=== PATIENT | male | born 1950 | race Caucasian/White ===

== ENCOUNTER 2022-07-23 08:23 | Observation (INO) ==
--- NOTE | 2022-06-06 15:47 | PAT Medication Instructions ---
Medication Instructions Date of Service June 06, 2022 Home Medications ascorbic acid (vitamin C) 1,000 mg tablet (Vitamin C) 1 g PO QAM aspirin 81 mg capsule 81 mg PO QAM atorvastatin 40 mg tablet 40 mg PO PM calcium 600 mg capsule 600 mg PO QAM coQ10 (ubiquinol) 100 mg capsule 100 mg PO QAM cyanocobalamin (vitamin B-12) 1,000 mcg tablet (Vitamin B-12) 1,000 mcg PO QAM fexofenadine 180 mg tablet 180 mg PO QAM fluticasone 100 mcg-salmeterol 50 mcg/dose blistr powdr for inhalation (Advair Diskus) 1 inh inhalation QAM glucosamine-chondroitin 250 mg-200 mg tablet (Osteo Bi-Flex) 1 tab PO QAM levothyroxine 150 mcg tablet 150 mcg PO 6XWK lisinopril 5 mg tablet 5 mg PO QAM metoprolol succinate 25 mg tablet,extended release 24 hr 25 mg PO QAM omeprazole 20 mg tablet,delayed release 20 mg PO QAM ticagrelor 90 mg tablet (Brilinta) 90 mg PO BID Continue as directed levothyroxine 150 mcg tablet 150 mcg PO 6XWK ASK your prescriber and surgeon ticagrelor 90 mg tablet (Brilinta) 90 mg PO BID (in order for spinal or epidural anesthesia, Brilinta needs to be stopped 7 days before surgery. Please check if okay with doctor that prescribes this to you) STOP taking 2 weeks before surgery coQ10 (ubiquinol) 100 mg capsule 100 mg PO QAM glucosamine-chondroitin 250 mg-200 mg tablet (Osteo Bi-Flex) 1 tab PO QAM DO NOT take the morning of surgery ascorbic acid (vitamin C) 1,000 mg tablet (Vitamin C) 1 g PO QAM calcium 600 mg capsule 600 mg PO QAM cyanocobalamin (vitamin B-12) 1,000 mcg tablet (Vitamin B-12) 1,000 mcg PO QAM fexofenadine 180 mg tablet 180 mg PO QAM lisinopril 5 mg tablet 5 mg PO QAM Take morning of surgery With a small sip of water, OTHERWISE NOTHING TO EAT OR DRINK AFTER MIDNIGHT: aspirin 81 mg capsule 81 mg PO QAM (unless surgeon directed otherwise) fluticasone 100 mcg-salmeterol 50 mcg/dose blistr powdr for inhalation (Advair Diskus) 1 inh inhalation QAM metoprolol succinate 25 mg tablet,extended release 24 hr 25 mg PO QAM omeprazole 20 mg tablet,delayed release 20 mg PO QAM Take evening before surgery atorvastatin 40 mg tablet 40 mg PO PM Other Notes If you have any questions please call us at [phone] or [phone] or [phone] or [phone]
--- NOTE | 2022-06-11 10:16 | Anesthesiology Consultation ---
Date of Service June 11, 2022 Assessment & Plan (1) Encounter for pre-operative examination: Chart Review Chart Review: Acceptable Risk for Surgery (pending PCP clearance (06/24/22), cardio clearance (06/25/22), and most recent cardio testing ) and Patient seen in Pre Admission Testing -Awaiting PCP clearance 06/24/22 - Awaiting cardio clearance 06/25/22- please send EKG to cardio office for review at preop appt and also fax for most recent ECHO, stress test and cath -Due to cardio history- patient is NOT a Same Day Joint candidate Per PAT appt on 06/11/22, patient traveling to [place]- coming back around 06/20/22. Pt is vaccinated for Covid. Will leave to surgeon's discretion if preop Covid testing needed. Educated on importance of using Covid precautions one week prior to surgery Teaching & Discussion Pre-Anesthesia Teaching/Discussion Notes: Instructed NPO after midnight before surgery,except medications with 15 cc of water. Medication instructions provided according to the PAT guidelines. History Surgery Operation Date: 07/23/22 07:15 Proposed Procedures p Right Total Knee Arthroplasty - Romeo Dick DO Height/Weight Height: 6 ft Weight: 81.9 kg Allergies Allergy/AdvReac Type Severity Reaction Status Date / Time No Known Allergies Allergy Verified 06/06/22 12:12 Medications Home Medications Medication Instructions Recorded Confirmed Last Taken ascorbic acid (vitamin C) 1,000 mg 1 g PO QAM 06/06/22 06/06/22 Unknown tablet (Vitamin C) aspirin 81 mg capsule 81 mg PO QAM 06/06/22 06/06/22 Unknown atorvastatin 40 mg tablet 40 mg PO PM 06/06/22 06/06/22 Unknown calcium 600 mg capsule 600 mg PO QAM 06/06/22 06/06/22 Unknown coQ10 (ubiquinol) 100 mg capsule 100 mg PO QAM 06/06/22 06/06/22 Unknown cyanocobalamin (vitamin B-12) 1,000 mcg PO QAM 06/06/22 06/06/22 Unknown 1,000 mcg tablet (Vitamin B-12) fexofenadine 180 mg tablet 180 mg PO QAM 06/06/22 06/06/22 Unknown fluticasone 100 mcg-salmeterol 50 1 inh inhalation QA 06/06/22 06/06/22 Unknown mcg/dose blistr powdr for inhalation (Advair Diskus) glucosamine-chondroitin 250 mg-200 1 tab PO QAM 06/06/22 06/06/22 Unknown mg tablet (Osteo Bi-Flex) levothyroxine 150 mcg tablet 150 mcg PO 6XWK 06/06/22 06/06/22 Unknown lisinopril 5 mg tablet 5 mg PO QAM 06/06/22 06/06/22 Unknown metoprolol succinate 25 mg 25 mg PO QAM 06/06/22 06/06/22 Unknown tablet,extended release 24 hr omeprazole 20 mg tablet,delayed 20 mg PO QAM 06/06/22 06/06/22 Unknown release ticagrelor 90 mg tablet (Brilinta) 90 mg PO BID 06/06/22 06/06/22 Unknown Past Medical History Medical History (Updated 06/11/22 @ 14:57 by Nimco Marina PA-C) CAD (coronary artery disease) Follows with [facility] in [place] S/p two stents 07/23/21 History of myocardial infarction 07/21/21 HLD (hyperlipidemia) HTN (hypertension) Hypothyroidism Osteoarthritis Prostate cancer 2018-- under observation Exercise / Class Metabolic Activity II 4-5 Yardwork/Stairs/Walk up hill (one flight of stairs - no chest pain or SOB ) Past Family History Family History Other No family history of adverse response to anesthesia Past Surgical History Surgical History H/O heart artery stent x 2 (07/23/2021) History of cardiac catheterization 07/23/21 - [facility] - [place] - 2 stents History of colonoscopy History of esophagogastroduodenoscopy (EGD) History of hydrocelectomy History of left inguinal hernia repair History of prostate biopsy History of repair of rotator cuff BL Past Anesthesia History No Hx of Anesthesia Complications and No Family Hx of Anesthesia Complications History of PONV No Hx of PONV and No Hx of Motion Sickness Social History Smoking Status: Never smoker Do You Dip or Chew Tobacco: No Hx Alcohol Use: Yes Alcohol type: beer and hard liquor alcohol intake frequency: a few times a week Hx Substance Use: No substance use type: does not use Review of Systems Patient denies chest pain, shortness of breath, dyspnea on exertion, reflux, cou gh, wheezing, palpitations. No hx of seizures, stroke, apnea/snoring. No hx of blood clots or blood transfusions Physical Exam Vital Signs VITALS BP 143/68 P 64 TEMP 98.3 SP02 97% RESP 16 Constitutional no acute distress ENMT Mouth: no TMJ clicking Thyromental Distance: > or= 3.5 Finger Breadths (4.0) Mallampati Class: II Left sided bridge (permanent) Missing molars Neck + limited neck extension Respiratory normal respiratory effort; no respiratory distress Auscultation: lungs clear to auscultation bilaterally; no wheezes Cardiovascular Rate/Rhythm: regular rate and regular rhythm Heart Sounds: no murmur Vessels: no carotid bruit Musculoskeletal Spine: no pain with cervical ROM Extremities: extremities normal to inspection Psychiatric Orientation: alert Lab Results Anesthesia Preop Results Results Anesthesia Widget: WBC 6.12 K/ul (4.8-10.8) 06/11/22 Hgb 13.7 g/dl (14.0-18.0) L 06/11/22 Hct 40.0 % (40.1-51.0) L 06/11/22 Plt 235 K/uL (130-400) 06/11/22 Na 141 mmol/L (136-145) 06/11/22 K 3.8 mmol/L (3.5-5.1) 06/11/22 Cl 106 mmol/L (98-107) 06/11/22 CO2 29 mmol/L (21-32) 06/11/22 BUN 18 mg/dl (6-23) 06/11/22 Creat 0.95 mg/dl (0.6-1.4) 06/11/22 Glucose Level 114 mg/dl (70-99(Fasting)) H 06/11/22 PT 10.9 Seconds (9.0-12.0) 06/11/22 PTT 26.7 Seconds (21.0-31.0) 06/11/22 INR 1.0 (0.9-1.1) 06/11/22 HA1c 5.8 % (4.5-5.6) H 06/11/22 Urine Color Yellow 06/11/22 Urine Appearance Clear (Clear) 06/11/22 Urine pH 5.5 (4.5-7.5) 06/11/22 Urine Specific [place] 1.015 (1.000-1.030) 06/11/22 Urine Protein Negative (Negative) 06/11/22 Urine Glucose (UA) Negative (Negative) 06/11/22 Urine Ketones Negative (Negative) 06/11/22 Urine Blood Negative (Negative) 06/11/22 Urine Nitrite Negative (Negative) 06/11/22 Urine Bilirubin Negative (Negative) 06/11/22 Urine Urobilinogen Negative (Negative) 06/11/22 Urine Leukocyte Esterase Trace (Negative) H 06/11/22 Urine WBC (Auto) 1-5 /hpf (0-5) 06/11/22 Urine RBC (Auto) 0-4 /hpf (0-4) 06/11/22 Urine Hyaline Casts (Auto) 0 /lpf (0-5) 06/11/22 Urine Epithelial Cells (Auto) 0-5 /lpf (0-5) 06/11/22 Urine Bacteria (Auto) Negative (Negative) 06/11/22 Blood Type A Positive 06/11/22 Antibody Screen NEGATIVE 06/11/22 Testing Electrocardiogram Date: 06/11/22 Findings: + NSR @ (68bpm ) Left axis deviation. Low voltage QRS Incomplete RBBB. 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
--- NOTE | 2022-07-08 13:08 | History & Physical Report ---
Date of Service July 08, 2022 date of surgery: 07/23/22 Procedure: Right Total Knee Arthroplasty Surgeon: Romeo Dick Assessment & Plan (1) Arthritis of right knee: Plan: Presents for preop evaluation prior to his right knee replacement. He has been having pain in this knee for many years now which gradually worsened and is now affecting his daily activities, has tried previous corticosteroid injection as well as viscosupplementation without relief. He is 1 year now status post stent and he can discontinue his Brilinta, but will continue with his aspirin. Like to be discharged home with home health physical therapy after overnight stay. Will need cardiac clearance from [facility] cardiology otherwise has no other questions or concerns The risks and benefits have been discussed including, but not limited to, risk of infection, nerve injury, stiffness, loss of motion, failure to improve, etc. Reasonable outcomes and options of treatment were discussed. An explanation of appropriate alternatives to the procedure that may be advantageous were discussed and their risks and benefits, as well as the risks and benefits of not proceeding with treatment. I offered to answer any additional inquiries concerning the treatment involved. All the patient's questions were answered. The patient is agreeable, understanding of the treatment plan and alternatives, and wishes to proceed with the treatment plan. History of Present Illness Chief Complaint: Right knee pain Primary Care Provider: Baldo Roper Mr Vera is a pleasant 71-year-old male who presents for preoperative duration prior to his right total knee replacement. He has been having pain in his knee for many years now which is gradually worsened and is now affecting his activities including walking standing using stairs. He has complaints of pain, weakness and decreased range of motion. He has tried viscosupplementation as well as cortisone injections as well as Tylenol, unable to take anti- inflammatories secondarily to other medications. At this point time is failed conservative measures like to proceed with a right total knee replacement Allergies Allergy/AdvReac Type Severity Reaction Status Date / Time No Known Allergies Allergy Verified 06/06/22 12:12 Home Medications Medication Instructions Recorded Confirmed Type ascorbic acid (vitamin C) 1,000 mg 1 g PO QAM 06/06/22 06/06/22 History tablet (Vitamin C) aspirin 81 mg capsule 81 mg PO QAM 06/06/22 06/06/22 History atorvastatin 40 mg tablet 40 mg PO PM 06/06/22 06/06/22 History calcium 600 mg capsule 600 mg PO QAM 06/06/22 06/06/22 History coQ10 (ubiquinol) 100 mg capsule 100 mg PO QAM 06/06/22 06/06/22 History cyanocobalamin (vitamin B-12) 1,000 mcg PO QAM 06/06/22 06/06/22 History 1,000 mcg tablet (Vitamin B-12) fexofenadine 180 mg tablet 180 mg PO QA 06/06/22 06/06/22 History fluticasone 100 mcg-salmeterol 50 1 inh inhalation QA 06/06/22 06/06/22 History mcg/dose blistr powdr for inhalation (Advair Diskus) glucosamine-chondroitin 250 mg-200 1 tab PO QA 06/06/22 06/06/22 History mg tablet (Osteo Bi-Flex) levothyroxine 150 mcg tablet 150 mcg PO 6XWK 06/06/22 06/06/22 History lisinopril 5 mg tablet 5 mg PO QA 06/06/22 06/06/22 History metoprolol succinate 25 mg 25 mg PO QAM 06/06/22 06/06/22 History tablet,extended release 24 hr omeprazole 20 mg tablet,delayed 20 mg PO QAM 06/06/22 06/06/22 History release ticagrelor 90 mg tablet (Brilinta) 90 mg PO BID 06/06/22 06/06/22 History Past Med/Surg History Medical History CAD (coronary artery disease) Follows with [facility]iology in [place] S/p two stents 07/23/21 History of myocardial infarction 07/21/21 HLD (hyperlipidemia) HTN (hypertension) Hypothyroidism Osteoarthritis Prostate cancer 2018-- under observation Surgical History H/O heart artery stent x 2 (07/23/2021) History of cardiac catheterization 07/23/21 - [facility] - [place] - 2 stents History of colonoscopy History of esophagogastroduodenoscopy (EGD) History of hydrocelectomy History of left inguinal hernia repair History of prostate biopsy History of repair of rotator cuff BL Family History Other No family history of adverse response to anesthesia Social History Smoking Status: Never smoker Second Hand Exposure: No; Hx Alcohol Use: Yes Alcohol type: beer and hard liquor Hx Substance Use: No Preferred Language: Italian Communication Ability: Effective Payroll Benefits Administrator Required: No Beliefs That Will Affect Care: None Current Living Situation: Family Feels Safe at Home: Yes Assistive Devices: Glasses Review of Systems Review of Systems: All systems reviewed & are unremarkable except as noted in HPI & below Constitutional: no fever, no chills and no sweats Respiratory: no cough and no dyspnea Cardiovascular: no chest pain, no dyspnea and no orthopnea Gastrointestinal: no abdominal pain, no nausea and no vomiting Musculoskeletal: as per Subjective / HPI Physical Exam Physical Exam: HT: 6ft WT: 81.9kg Constitutional: WD/WN, vitals as above no acute distress Respiratory: normal respiratory effort, lungs clear to auscultation no respiratory distress, no labored breathing and does not use accessory muscles Cardiovascular: RRR, no murmur, no edema Gastrointestinal (Abdomen): normal bowel sounds, soft, nontender, no hepatosplenomegaly Musculoskeletal: Knee: + knee abnormal to inspection (Right Knee: ), + effusion (+1 effusion), + limited ROM of knee (ROM 0/3/110), + knee ROM with crepitation, + joint line tenderness (medial joint line) and + Babita's sign positive; no deformity, no skin erythema, no ecchymosis, no valgus laxity, no varus laxity, anterior drawer test negative, Bull's sign negative and pivot shift test negative Results & Data Results & Data ([facility]) Diagnostic Findings Right Knee X-ray: Right knee series showing advanced degenerative changes to the right knee, narrowing of the medial compartment and patello-femoral joint with patellar spurring noted, findings showing joint space narrowing of the medial compartment and patello-femoral joint, osteophyte formation and subchondral sclerosis noted. overall varus alignment. no acute bony pathology noted.
[~2022-07-23 08:23] MED LIST: ACETAMINOPHEN 500 MG TAB PO SCH; BUPIVACAINE 0.5 % 5 MG/1 ML PF 10ML VIAL ONE; CeleBREX 200 MG CAP PO SCH; FAMOTIDINE 20 MG TAB PO SCH; GABAPENTIN 300 MG CAP PO SCH; LR 500ML BOLUS, THEN 15ML/HR IV SCH; METOCLOPRAMIDE HCL 10 MG TABLET PO SCH; ROPIVACAINE 0.5% 5 MG/ML 30 ML VIAL ONE; ROPIVACAINE 0.5% HCL/PF 150 MG, BUPIVACAINE 0.75% MPF 20 ML, EPINEPHrine 30MG/30ML (OR ... INFIL SCH; ceFAZolin 2000MG 2,000 MG/15 ML SYR IV SCH; dexAMETHasone 4 MG TAB PO SCH
[2022-07-23] MEDS ORDERED: PROPOFOL IV EMULSION 10 MG/ML 20 ML VIAL IV ONE (08:51)
[2022-07-23] MEDS ORDERED: LIDOCAINE 2% MPF LOCAL 5 ML VIAL INFIL ONE (08:51)
[2022-07-23] MEDS ORDERED: ONDANSETRON INJ 2 MG/ML 2 ML VIAL ONE (08:51)
[2022-07-23] MEDS ORDERED: KETAMINE 50 MG/5 ML SYRINGE ONE (08:51)
[2022-07-23] MEDS ORDERED: MIDAZOLAM HCL 1 MG/ML 2ML VIAL ONE (08:51)
[2022-07-23] MEDS ORDERED: GLYCOPYRROLATE 0.2 MG/ML VIAL ONE (08:51)
[2022-07-23] MEDS ORDERED: TRANEXAMIC ACID / 0.7% NACL 1,000 MG/100 ML BAG IV ONE ×2 (09:59)
--- NOTE | 2022-07-23 10:04 | History & Physical Bridge Note ---
Date of Service July 23, 2022 History & Physical Bridge Note I have examined the patient, reviewed the History & Physical and in the interval since the performance of the History & Physical I have noted the following changes of clinical significance: no changes noted
[2022-07-23] MEDS ORDERED: ONDANSETRON INJ 2 MG/ML 2 ML VIAL IV PRN ×2 (10:07→14:15)
[2022-07-23] MEDS ORDERED: fentaNYL citrate 100 MCG/2 ML VIAL IV PRN (10:07)
[2022-07-23] MEDS ORDERED: ATROPINE SULFATE 0.1 MG/ML 10ML SYR IV PRN (10:07)
[2022-07-23] MEDS ORDERED: ePHEDrine sulfate 50 MG/ML AMP IV PRN (10:07)
[2022-07-23] MEDS ORDERED: ORTHO JOINT ANESTHETIC ONE (10:38)
[2022-07-23] MEDS ORDERED: ePHEDrine sulfate 50 MG/ML SYR ONE (11:49)
--- NOTE | 2022-07-23 12:23 | Operative Report ---
Post Operative Report Pre & Post Diagnosis Operation Date: 07/23/22 10:25 Pre-Op Diagnosis: Arthritis of Right Knee Post-Op Diagnosis: Arthritis of Right Knee I identified the patient and participated in the time-out.: Yes Procedure Operation Date: 07/23/22 10:25 Actual Procedures p Right Total Knee Arthroplasty(Right utilizing [employer] journey 2 no nblock total knee arthroplasty size femur 8 tibia 8 Poly 9 patella 38 round) - Romeo Dick DO Surgeon Romeo Dick DO Aerospace Medicine Physician LESLEE Dubose Estimated Blood Loss 5 Findings Consistent with Post-Op Diagnosis Patient presents with 10 degree flexion contracture varus alignment subchondral sclerosis marginal osteophytes eburnated [id number] with a moderate to large effusion Specimens Bone and cartilage Drains Medium bore Hemovac Anesthesia Type MAC Spinal Regional Complications none Disposition Accompanied Patient To Recovery: No Disposition: Recovery Room Indications Patient presents with severe end-stage tricompartmental DJD varus alignment subchondral sclerosis marginal osteophytes failed attempted corticosteroid injection viscosupplementation relative rest activity modification the above intraoperative findings were noted Description of Procedure After proper prepping and draping of the Right lower extremity anterior midline incision was made over the region of the extensor extensor mechanism after meticulous hemostasis was obtained and maintained in subcutaneous tissues a medial parapatellar incision was made The patella was subluxed lateralward the medial lateral gutter were cleaned from any hypertrophic synovitis and scar tissue of the distal femoral block was placed and the distal femoral osteotomy cut was made subsequently the chamfers anterior and posterior osteotomy cuts were made utilizing the 4-in-1 block the tibia was subsequently subluxed anteriorward medial and ateral meniscal remnants were excised in their entirety remnants of the anterior and posterior cruciate ligaments were excised in their entirety excellent exposure of the proximal tibia was obtained the tibial osteotomy guide was placed on the proximal tibial osteotomy cut was made once again the knee was irrigated with copious amounts of sterile saline solution the patella was subsequently everted lateralward thickened scar tissue around the patella was removed the patella was subsequently cut utilizing a freehand technique and was drilled prepared for final preparation and placement of patella socially flexion-extension gaps were checked and the equal and symmetric trials were placed to the appropriate femoral and tibial trials with poly-spacer being placed for equal flexion and extension gaps and full range of motion including extension to 0 and flexion to 140 the trial components after having been taken to recovery range of motion was subsequently removed meticulous hemostasis was obtained and maintained subsequently a knee block injection of joint cocktail including ropivacaine 0.5% 150 mg. Bupivacaine 0.5% epinephrine 1-200,030 mL's toradol 30 mg dexamethasone 4 mg ketamine 10 mg clonidine 100 micrograms normal saline solution 30 mg was infiltrated into the soft tissues of the posterior knee medial lateral gutters and periosteal synovium special attention was paid to protect neurovascular structures at all times subsequently trial components having been removed the knee was irrigated with sterile saline solution. debris was removed the proximal tibia was subsequently prepared and was made ready for the placement of the tibial component tibial component was also cemented and tamped into position the femoral component was subsequently placed and cemented in the position the patellar component was subsequently cemented in position because hemostasis once again obtained and maintained wound having been thoroughly irrigated with debridement and debridement lavage was performed as well as a medial parapatellar incision closed with #1 Vicryl in interrupted fashion subcutaneous was closed with #2 Vicryl skin was closed with skin clips. PA-C was necessary for prepping and drapping as well as wound closure of deep fascia Sub cutaneous tissue and skin and was necessary for the case. A sterile compressive dressing was placed patient was taken to recovery in stable condition of report dictated by Kapil I attest to the content of the Intraoperative Record and any orders documented therein. Any exceptions are noted below.Due to the complex nature of the procedure, the entire surgery was performed with the operational assistance of LESLEE Dubose. The assistant sales center manager, under direct supervision, was involved in the actual performance of all aspects of the surgical procedure including hemostasis, tissue retraction and incision, instrument management, patient positioning, and wound closure. I attest to the content of the Intraoperative Record and any orders documented therein. Any exceptions are noted below.
--- NOTE | 2022-07-23 13:59 | Anesthesiology Progress Note ---
Date of Service July 23, 2022 Anesthesia Post Procedure Vital Signs Vital Signs: Temp Pulse Pulse Resp BP Pulse Ox O2 Del Method 07/23/22 13:50 98.2 F 71 15 106/61 94 Room Air 07/23/22 13:40 72 12 108/64 95 Room Air 07/23/22 13:30 70 13 109/62 94 Room Air 07/23/22 13:20 74 17 106/68 93 Room Air 07/23/22 13:10 92 H 13 107/68 94 Room Air 07/23/22 13:02 99.1 F 86 15 103/63 98 Oxymask 07/23/22 09:07 98.2 F 65 20 137/87 96 Room Air O2 Flow Rate 07/23/22 13:50 07/23/22 13:40 07/23/22 13:30 07/23/22 13:20 07/23/22 13:10 07/23/22 13:02 5 07/23/22 09:07 Transfer of Care Handoff Completed per policy Notes Mental Status: alert / awake / arousable and participated in evaluation Patient Amnestic to Procedure: Yes Nausea / Vomiting: adequately controlled Pain: adequately controlled Airway Patency, RR, SpO2: stable & adequate BP & HR: stable & adequate Hydration State: stable & adequate Neuraxial Anesthesia: was administered and sensory block is resolving Anesthetic Complications: no major complications apparent and Pt Satisfied with anesthetic care
[2022-07-23] MEDS ORDERED: NALOXONE HCL 0.4 MG/1 ML VIAL/CARP IV PRN (14:15)
[2022-07-23] MEDS ORDERED: MAGNESIUM HYDROXIDE SUSP 30 ML UDC PO PRN (14:15)
[2022-07-23] MEDS ORDERED: bisacodyL 10 MG SUPP PR PRN (14:15)
[2022-07-23] MEDS ORDERED: diphenhydrAMINE Capsule 25 MG CAP PO PRN (14:15)
[2022-07-23] MEDS ORDERED: SODIUM CHLORIDE 0.9% 1000ML 1,000 ML IV SCH (14:15)
[2022-07-23] MEDS ORDERED: METOCLOPRAMIDE HCL INJ 5 MG/ML 2 ML VIAL IV PRN (14:15)
[2022-07-23] MEDS ORDERED: oxyCODONE HCL IR 5 MG TAB (IMMEDIATE RELEASE) PO PRN (14:15)
[2022-07-23] MEDS ORDERED: HYDROmorphone INJ 1 MG/ML SYRINGE IV PRN (14:15)
--- NOTE | 2022-07-23 14:44 | XRay Report ---
RIGHT KNEE 2 VIEWS History: Right total knee arthroplasty. Degenerative arthritis. Postop. FINDINGS: The patient is status post a right total knee arthroplasty. The hardware is intact. No frac ture or dislocation. Surgical drains are in place. IMPRESSION: Right total knee arthroplasty. No evidence for hardware complication. ACT 112: Negative or not required by law. Electronically signed by: Abraham Rendon M.D. 07/23/2022 2:42 PM
--- NOTE | 2022-07-23 14:48 | Hospitalist Consultation ---
Date of Consultation July 23, 2022 Assessment & Plan (1) Status post right knee replacement: -The patient is currently afebrile, hemodynamically stable, and stable on RA -Pain control, perioperative abx, DVT PPX, and IV fluids per the primary team -Agree with continuing IV fluids with orders to DC at 0600 tomorrow as the patient is euvolemic with soft BPs -Agree with am labs, we will review -Added daily famotidine while admitted for stress ulcer PPX (2) CAD (coronary artery disease): -S/P PCi to the LAD in July of 2021 -Continue aspirin as scheduled to restart tomorrow -Ok to stop Brilinta on discharge as recommended by Cardiology in their medical clearance on 06/25/22 as he is now 1 yr post PCI (3) HTN (hypertension): -Continue metoprolol -Agree with restarting lisinopril tomorrow if BP and renal functino are stable (4) HLD (hyperlipidemia): -Continue statin (5) Hypothyroidism: -Continue levothyroxine (6) GERD (gastroesophageal reflux disease): -Continue daily famotidine while admitted then 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 Dyer at the time of the consult Supervising Physician Co-Signing Physician Notes PA Supervision Note: I personally saw and examined the patient. I verified all meadows points and agree with LESLEE Ash with the following exceptions and/or additions: Subjective: 72-year-old male past medical history significant for hypertension, CAD, hypothyroidism, asthma admitted for postoperative care after right total knee arthroplasty today by Dr. Dick. Patient is doing well and even reports some range of motion in that right knee. Is feeling hungry, no other complaints including no chest pain or shortness of breath, no abdominal pain, nausea, diarrhea. Physical exam: Vitals reviewed Gen: Alert and oriented, NAD HEENT: anicteric sclerae, EOMI CV: RRR no murmurs Pulm: CTAB no wheezes or crackles Abd: +BS soft nontender Ext: no edema, 2+ DP pulses Skin: no rashes, warm/dry Neuro: No focal neurologic deficits Labs, Rads, and ECG reviewed: COVID-negative, otherwise no labs, imaging studies performed for preadmission testing. Agree with lab work in the morning. Assessment and Plan: Right knee arthritis: Status post right total knee arthroplasty 07/23/[address] Dick, doing well and will have physical and Occupational Therapy following continued recovery. DVT prophylaxis and pain management per primary team. CAD: Patient has a history of CAD status post drug-eluting stent in July 2021; patient is now 1 year post stent and can stop Brilinta per previous cardiology notes. Hypertension: History of, on lisinopril. BP normotensive at 112/67, will hold lisinopril until morning labs and monitor BP with likely resume lisinopril tomorrow Plan otherwise as stated above. History of Present Illness Reason for Consultation: Post-op medical management Requesting Physician: Romeo Dick DO Attending Physician: Dr. Dionne Dyer DO History of Present Illness Patel is a 72 year old male with a PMH significant for CAD S/P PCI of the LAD in July of 2021, hypothyroidism, GERD, asthma, hyperlipidemia, and HTN who presented to the [facility] on 07/23/22 for elective Right Total Knee Arthroplasty with Dr. Dick. Per the post-op report, there were no reported intra-operative complications, EBL was listed as 5 cc, and anesthesia was listed as "[facility]". Review of the patient's vitals since arrival to the hospital today show him to be afebrile, hemodynamically stable, and stable on RA. Review of the patient's cardiac medical clearance on 06/25/22 explains that the patient should continue his metoprolol, statin, and aspirin through the perioperative period. The patient has been on Brilinta since his cardiac catheterization in 2021. The cardiac clearance clearly explains that the patient could stop Brilinta 5-7 days prior to surgery and then stop it altogether since he is greater than 1 year from the procedure. At the time of the exam the patient was resting in bed in no acute distress with his sitting bedside. He states that he is feeling well after his pro cedure, he is currently without RLE pain and has no complaints at the time of the exam. He confirms that he took his omeprazole, advair, and metoprolol this am; he does not have ALVINO or use HS CPAP. He also confirmed the he stopped his Brilinta approximately one week ago as directed. Please refer to Dr. Dyer's attestation for any changes to the treatment plan Allergies Allergy/AdvReac Type Severity Reaction Status Date / Time No Known Allergies Allergy Verified 07/23/22 08:55 Home Medications Medication Instructions Recorded Confirmed Type ascorbic acid (vitamin C) 1,000 mg 1 g PO QAM 06/06/22 07/23/22 History tablet (Vitamin C) aspirin 81 mg capsule 81 mg PO QAM 06/06/22 07/23/22 History atorvastatin 40 mg tablet 40 mg PO PM 06/06/22 07/23/22 History calcium 600 mg capsule 600 mg PO QAM 06/06/22 07/23/22 History coQ10 (ubiquinol) 100 mg capsule 100 mg PO QAM 06/06/22 07/23/22 History cyanocobalamin (vitamin B-12) 1,000 mcg PO QAM 06/06/22 07/23/22 History 1,000 mcg tablet (Vitamin B-12) fexofenadine 180 mg tablet 180 mg PO QA 06/06/22 07/23/22 History fluticasone 100 mcg-salmeterol 50 1 inh inhalation QA 06/06/22 07/23/22 History mcg/dose blistr powdr for inhalation (Advair Diskus) glucosamine-chondroitin 250 mg-200 1 tab PO QAM 06/06/22 07/23/22 History mg tablet (Osteo Bi-Flex) levothyroxine 150 mcg tablet 150 mcg PO 6XWK 06/06/22 07/23/22 History lisinopril 5 mg tablet 5 mg PO QAM 06/06/22 07/23/22 History metoprolol succinate 25 mg 25 mg PO QAM 06/06/22 07/23/22 History tablet,extended release 24 hr omeprazole 20 mg tablet,delayed 20 mg PO QAM 06/06/22 07/23/22 History release ticagrelor 90 mg tablet (Brilinta) 90 mg PO BID 06/06/22 07/23/22 History Patient History Medical History CAD (coronary artery disease) Follows with [facility] in [place] S/p two stents 07/23/21 History of myocardial infarction 07/21/21 HLD (hyperlipidemia) HTN (hypertension) Hypothyroidism Osteoarthritis Prostate cancer 2018-- under observation Surgical History H/O heart artery stent x 2 (07/23/2021) History of cardiac catheterization 07/23/21 - [facility] [place] - 2 stents History of colonoscopy History of esophagogastroduodenoscopy (EGD) History of hydrocelectomy History of left inguinal hernia repair History of prostate biopsy History of repair of rotator cuff BL Family History Other No family history of adverse response to anesthesia Social History Smoking Status: Never smoker Second Hand Exposure: No; Do You Dip or Chew Tobacco: No; Hx Alcohol Use: Yes Alcohol type: beer and hard liquor Hx Substance Use: No Preferred Language: French Communication Ability: Effective Patient Account Specialist Required: No Beliefs That Will Affect Care: None Current Living Situation: Family Feels Safe at Home: Yes Safety Concerns: Feels Safe At This Time Assistive Devices: Glasses Review of Systems Review of Systems: Denies current fever, chills, headache, changes in vision, hearing, taste, and smell, chest pain, SOB, cough, abdominal pain, nausea, vomiting, diarrhea, hematemesis, melena, dysuria, hematuria, and recent falls. All systems have been reviewed and are otherwise negative. Physical Exam Physical Exam: Physical Exam: General: In no acute distress, stated age, well-nourished, good hygiene HEENT: Normocephalic, atraumatic, no scleral icterus, pupils around round, symmetrical, and reactive to light, moist mucus membranes, trachea midline, no thyromegaly Chest/Pulm: No respiratory distress, symmetrical chest expansion, clear breath sounds throughout Cardiac: RRR, no murmurs noted Abdomen: Negative for ascites and bruising, normoactive bowel sounds, soft, non-tender to palpation throughout Musculoskeletal: Patient iwth RLE currently wrapped and with SCDs on the BL LE's. No signs of drainage from from the wraps and patient has intact sensation and motor function in the BL feet Extremities: Radial, dorsalis pedis, and posterior tibial pulses are intact and symmetrical, no edema noted in the BL LE's Skin: Warm, dry, no rashes , lesions, or scars noted Neuro: Alert and oriented to person, place, month, year, and president, no focal defects, no tremors noted Psych: No acute distress, calm and cooperative during the exam Results & Data Results & Data ([facility]) Vital Signs (Past 12 Hours) Vital Signs Temp Pulse Pulse Resp BP Pulse Ox O2 Del Method 07/23/22 14:15 36.9 C 73 16 105/59 L 94 Room Air 07/23/22 14:00 73 17 105/59 L 93 Room Air 07/23/22 13:50 36.8 C 71 15 106/61 94 Room Air 07/23/22 13:40 72 12 108/64 95 Room Air 07/23/22 13:30 70 13 109/62 94 Room Air 07/23/22 13:20 74 17 106/68 93 Room Air 07/23/22 13:10 92 H 13 107/68 94 Room Air 07/23/22 13:02 37.3 C 86 15 103/63 98 Oxymask 07/23/22 09:07 36.8 C 65 20 137/87 96 Room Air O2 Flow Rate 07/23/22 14:15 07/23/22 14:00 07/23/22 13:50 07/23/22 13:40 07/23/22 13:30 07/23/22 13:20 07/23/22 13:10 07/23/22 13:02 5 07/23/22 09:07 Diagnostic Findings Knee X-Ray 07/23/22 13:07 RIGHT KNEE 2 VIEWS History: Right total knee arthroplasty. Degenerative arthritis. Postop. FINDINGS: The patient is status post a right total knee arthroplasty. The hardware is intact. No fracture or dislocation. Surgical drains are in place. IMPRESSION: Right total knee arthroplasty. No evidence for hardware complication. ACT 112: Negative or not required by law. Electronically signed by: Abraham Rendon M.D. 07/23/2022 2:42 PM ECG Additional Comments: No ECG available at the time of the consult PG Care Time/CCT Total # of Minutes Spent Total Time Spent with Patient: Total time spent is greater than 50% in coordination of care (as documented) at patient's floor/unit and/or counseling patient: Coding Level of Care Code Established Pt INP/OBS CONSULT LVL 4, 60 MIN Patient Type Established Medical Decision Making High Complexity Diagnoses Status post right knee replacement Z96.651 CAD (coronary artery disease) I25.10 HTN (hypertension) I10 HLD (hyperlipidemia) E78.5 Hypothyroidism E03.9 GERD (gastroesophageal reflux disease) K21.9 Asthma J45.909
[2022-07-23] MEDS: ACETAMINOPHEN 500 MG TAB PO SCH ×2 (15:15→20:46)
[2022-07-23] MEDS: ceFAZolin 2000MG 2,000 MG/15 ML SYR IV SCH (20:46)
[2022-07-23] MEDS: DOCUSATE SODIUM 100 MG CAP PO SCH (20:46)
[2022-07-23] MEDS: TICAGRELOR 90 MG TAB PO SCH (20:47)
[2022-07-23] MEDS ORDERED: SENNA 8.6 MG TAB PO SCH (21:00)
[2022-07-23] MEDS ORDERED: ATORVASTATIN 40 MG TAB PO SCH (21:00)
[2022-07-24] MEDS: ceFAZolin 2000MG 2,000 MG/15 ML SYR IV SCH (05:17)
[2022-07-24] MEDS: ACETAMINOPHEN 500 MG TAB PO SCH (05:17)
[2022-07-24 06:05] LABS: Hematocrit (blood only) 35.2 % (42.0-52.0); Hemoglobin 12.2 g/dl (14.0-18.0); Mean Corpuscular Hemoglobin 30.9 pg (25.0-34.0); Mean Corpuscular Hgb Conc 34.7 g/dL (32.0-36.0); Mean Corpuscular Volume 89.1 fL (80.0-100.0); Mean Platelet Volume 10.2 fL (9.4-12.4); Platelet Count 222 K/uL (130-400); RDW Standard Deviation 39.1 fL (36.4-46.3); Red Blood Count 3.95 M/uL (4.70-6.10); White Blood Count 16.43 K/ul (4.8-10.8)
[2022-07-24 06:06] LABS: BUN Creatinine Ratio 22.7 (10-20); Calcium 9.2 mg/dl (8.5-10.1); Creatinine Clr Calc Pharmacy 62.5 ml/min; Est GFR (African American) 70.8 ml/min; Est GFR (Non-African American) 61.1 ml/min; Potassium 4.9 mmol/L (3.5-5.1)
[2022-07-24] MEDS ORDERED: LEVOTHYROXINE SODIUM 150 MCG TABLET PO SCH (06:30)
[2022-07-24] MEDS: DOCUSATE SODIUM 100 MG CAP PO SCH (08:34)
[2022-07-24] MEDS: TICAGRELOR 90 MG TAB PO SCH (08:36)
[2022-07-24] MEDS ORDERED: FAMOTIDINE 20 MG in SYRINGE 3 ML IV SCH (09:00)
[2022-07-24] MEDS ORDERED: lisinopril 5 MG TAB PO SCH (09:00)
[2022-07-24] MEDS ORDERED: FLUTICASONE/VILANTEROL 100/25MCG 14 PUFFS/INHALER INH SCH (09:00)
[2022-07-24] MEDS ORDERED: ASPIRIN 81 MG ECTAB PO SCH (09:00)
[2022-07-24] MEDS ORDERED: MULTIVITAMIN TAB PO SCH (09:00)
[2022-07-24] MEDS ORDERED: FEXOFENADINE HCL 180 MG TAB PO SCH (09:00)
[2022-07-24] MEDS ORDERED: CALCIUM CARBONATE 1250MG TAB PO SCH (09:00)
[2022-07-24] MEDS ORDERED: METOPROLOL SUCC 25MG EXT REL TAB PO SCH (09:00)
[2022-07-24] MEDS ORDERED: CYANOCOBALAMIN (B-12) 500 MCG TABLET PO SCH (09:00)
[2022-07-24] MEDS ORDERED: ASCORBIC ACID 500 MG TAB PO SCH (09:00)
--- NOTE | 2022-07-24 09:21 | Hospitalist Progress Note ---
Date of Service July 24, 2022 Assessment & Plan (1) Status post right knee replacement: Plan: -The patient is currently afebrile, hemodynamically stable, and stable on RA -Pain control, perioperative abx, DVT PPX, and IV fluids per the primary team -Agree with continuing IV fluids with orders to DC at 0600 tomorrow as the patient is euvolemic with soft BPs -Agree with am labs, we will review -Added daily famotidine while admitted for stress ulcer PPX (2) CAD (coronary artery disease): Plan: -S/P PCi to the LAD in July of 2021 -Continue aspirin as scheduled to restart tomorrow -Ok to stop Brilinta on discharge as recommended by Cardiology in their medical clearance on 06/25/22 as he is now 1 yr post PCI (3) HTN (hypertension): Plan: -Continue metoprolol -Agree with restarting lisinopril tomorrow if BP and renal functino are stable (4) HLD (hyperlipidemia): Plan: -Continue statin (5) Hypothyroidism: Plan: -Continue levothyroxine (6) GERD (gastroesophageal reflux disease): Plan: -Continue daily famotidine while admitted then 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 Dyer at the time of the consult Admission and Anticipated Discharge Date Admission Date: July 23, 2022 Results & Data Results & Data ([facility]) Vital Signs (Past 12 Hours) Vital Signs Temp Pulse Resp BP Pulse Ox O2 Del Method 07/24/22 08:20 36.7 C 69 18 148/78 H 98 Room Air 07/24/22 03:28 36.7 C 65 16 115/68 97 Room Air 07/23/22 22:59 36.4 C L 73 16 148/76 H 94 Room Air PG Care Time/CCT Total # of Minutes Spent Total Time Spent with Patient: Total time spent is greater than 50% in coordination of care (as documented) at patient's floor/unit and/or counseling patient: Coding Diagnoses Status post right knee replacement Z96.651 CAD (coronary artery disease) I25.10 HTN (hypertension) I10 HLD (hyperlipidemia) E78.5 Hypothyroidism E03.9 GERD (gastroesophageal reflux disease) K21.9 Asthma J45.360
--- NOTE | 2022-07-24 09:54 | Communication Note ---
Date of Service: July 24, 2022 Patient seen in halls working with therapy. Labs stable and dressed for discharge with home health therapy. Reached out to orthopedic surgery for any questions/concerns, patient already planning for discharge. No fever/chills, chest pain, shortness of breath, abdominal pain, nausea or vomiting. No official evaluation required. Brillinta STOPPED at d/c as has been on >1 year. Please call with any questions/concerns.
--- NOTE | 2022-07-24 10:39 | Orthopedic Progress Note ---
Date of Service July 24, 2022 Assessment & Plan (1) Arthritis of right knee: Plan: Postop day 1 status post right total knee arthroplasty. Leukocytosis-patient's currently asymptomatic at this time. Vital signs stable. Likely secondary to preoperative steroids and/or surgical stress PT/OT protocols. Weightbearing as tolerated. DVT prophylaxis-aspirin p.o. twice daily, SCDs, BEL hose Pain management as written DC planning-patient is planning for discharge to home today with home health services. Admission and Anticipated Discharge Date Admission Date: July 23, 2022 Subjective Postop day 1 Patient sitting in the room at the bedside. He is about to do his occupational therapy. He feels well today. Pain is controlled. He denies shortness of breath, chest pain, lightheadedness. He is hoping to go home today. Physical Exam Physical Exam: Dressings are clean, dry, and intact. Calves are soft nontender. Neurovascular intact. Toes are mobile. He has good dorsiflexion and plantarflexion of the right foot. He had 50 cc of drainage from his Hemovac from the previous shift. Results & Data ([facility]) Vital Signs (Past 12 Hours) Vital Signs Temp Pulse Resp BP Pulse Ox O2 Del Method 07/24/22 08:20 36.7 C 69 18 148/78 H 98 Room Air 07/24/22 03:28 36.7 C 65 16 115/68 97 Room Air 07/23/22 22:59 36.4 C L 73 16 148/76 H 94 Room Air Laboratory Results Laboratory Results WBC 16.43 K/ul (4.8-10.8) H 07/24/22 05:31 RBC 3.95 M/uL (4.70-6.10) L 07/24/22 05:31 Hgb 12.2 g/dl (14.0-18.0) L 07/24/22 05:31 Hct 35.2 % (42.0-52.0) L 07/24/22 05:31 MCV 89.1 fL (80.0-100.0) 07/24/22 05:31 MCH 30.9 pg (25.0-34.0) 07/24/22 05:31 MCHC 34.7 g/dL (32.0-36.0) 07/24/22 05:31 RDW Std Deviation 39.1 fL (36.4-46.3) 07/24/22 05:31 RDW Coeff of Marian 12.0 % (11.5-14.5) 07/24/22 05:31 Plt Count 222 K/uL (130-400) 07/24/22 05:31 MPV 10.2 fL (9.4-12.4) 07/24/22 05:31 Sodium 136 mmol/L (136-145) 07/24/22 05:31 Potassium 4.9 mmol/L (3.5-5.1) 07/24/22 05:31 Chloride 105 mmol/L (98-107) 07/24/22 05:31 Carbon Dioxide 28 mmol/L (21-32) 07/24/22 05:31 Anion Gap 3 (3-11) 07/24/22 05:31 BUN 27 mg/dl (6-23) H 07/24/22 05:31 Creatinine 1.19 mg/dl (0.6-1.4) 07/24/22 05:31 Est Cr Clr Drug Dosing 62.5 ml/min 07/24/22 05:31 Est GFR ( Amer) 70.8 ml/min 07/24/22 05:31 Est GFR (Non-Af Amer) 61.1 ml/min 07/24/22 05:31 BUN/Creatinine Ratio 22.7 (10-20) H 07/24/22 05:31 Glucose 135 mg/dl (70-99(Fasting)) H 07/24/22 05:31 Calcium 9.2 mg/dl (8.5-10.1) 07/24/22 05:31 SARS-CoV-2, RNA, NAAT NEGATIVE (NEGATIVE) 07/23/22 Unknown Impressions Knee X-Ray 07/23/22 13:07 RIGHT KNEE 2 VIEWS History: Right total knee arthroplasty. Degenerative arthritis. Postop. FINDINGS: The patient is status post a right total knee arthroplasty. The hardware is intact. No fracture or dislocation. Surgical drains are in place. IMPRESSION: Right total knee arthroplasty. No evidence for hardware complication. ACT 112: Negative or not required by law. Electronically signed by: Abraham Rendon M.D. 07/23/2022 2:42 PM
--- NOTE | 2022-07-24 13:01 | Discharge Summary ---
Date of Service date of discharge: July 24, 2022 date of admission: 07/23/22 Admission HPI Per Admitting Provider Mr Vera is a pleasant 71-year-old male who presents for preoperative duration prior to his right total knee replacement. He has been having pain in his knee for many years now which is gradually worsened and is now affecting his activities including walking standing using stairs. He has complaints of pain, weakness and decreased range of motion. He has tried viscosupplementation as well as cortisone injections as well as Tylenol, unable to take anti- inflammatories secondarily to other medications. At this point time is failed conservative measures like to proceed with a right total knee replacement Principal Diagnosis right knee arthritis Discharge Exam Constitutional WD/WN, vitals as above Musculoskeletal right knee: NVDI, calf SNT, negative tara sign. DP palpable, able to wiggle toes/ankle movement without difficulty. JAKI dressing clean dry and intact. expected post-operative bruising noted. Discharge Data Allergies Allergy/AdvReac Type Severity Reaction Status Date / Time No Known Allergies Allergy Verified 07/23/22 08:55 Consultations 07/18/22 14:09 Consult Hospitalist Routine Procedures Performed Operation Date: 07/23/22 10:25 Actual Procedures p Right Total Knee Arthroplasty(Right) - Romeo Dick DO Ordered Studies 07/23/22 05:00 US - OR guided needle placemen Routine Hospital Course (1) Arthritis of right knee: Postop day 1 status post right total knee arthroplasty. Leukocytosis-patient's currently asymptomatic at this time. Vital signs stable. Likely secondary to preoperative steroids and/or surgical stress PT/OT protocols. Weightbearing as tolerated. DVT prophylaxis-aspirin p.o. twice daily, SCDs, BEL joy Pain management as written DC planning-patient is planning for discharge to home today with home health services. Total Time Total Time Spent Total Time Spent (In Minutes): 20 Discharge Plan Discharge Items Patient Disposition: Home - Home Health Services Reason For Visit: Arthritis of Right Knee Discharge Diagnosis: RIGHT TOTAL KNEE REPLACEMENT Activity: Per Instructions section Weightbearing: Right weightbearing Weightbearing Comment: WBAT with walker Non-emergency contact: Surgeon Call non-emergency contact if: you have any medication questions, your temperature is above 101, your wound has increased redness, your wound has increased drainage and your wound pain has increased Follow-up/Referrals: Romeo Dick DO [Surgeon] - (Follow-up with Dr. Dick or his PA in 2 weeks from the day of your surgery for your first postoperative visit) Baldo Roper [Primary Care Provider] - Diet: Regular Addtl Attending Provider Instructions: ACTIVITY RECOMMENDATIONS: SELF CARE INSTRUCTIONS AFTER TOTAL KNEE REPLACEMENT A. You may need to continue a physical therapy program after discharge from the hospital. There are several options available to you. Your doctor will assist you in selecting the best one for you. 1. An out-patient facility 2 to 3 times a week for therapy or home therapy. 2. Continue working on all exercises taught to you in the hospital. Your goals should be to increase bending of your knee to 90 degrees and beyond and to fully straighten your knee. B. You may progress at your own pace from walking with a walker or crutches to a cane; then to no assistive devices. C. Make walking a part of your daily routine. Be up as much as comfortable with rest periods throughout the day. Rest with leg elevation is very important. Use the ice wrap frequently for the first 3-4 weeks. D. There are no restrictions on activities. You may ride in a car, shop, participate in alarm adjuster and all social activities. E. Wear the long elastic stockings (BEL hose) 20 hours a day for 2 weeks after surgery. They can be removed several times a day for laundering and for a bath. F. You may shower, no tub baths until cleared by your doctor. SPECIAL CARE INSTRUCTIONS: VERY IMPORTANT TO READ AND REVIEW A. There are a few signs you need to watch for after you are home. Call [facility] [place] if you notice any of the followin. Increased severe knee pain. Some pain is expected especially when you exercise. 2. Increased swelling in your leg or knee; pain or swelling of the calf muscle in either lower leg. 3. Any fluid drainage from the incision. 4. Shortness of breath or chest pain. B. Please call [facility] at if you have any concerns or questions about your operation or recovery. The doctor or his nurse will return your call promptly. C. You must take antibiotics before dental work, bladder, bowel or other surgery. Your doctor will provide you with a permanent care to carry describing this precaution. IMPORTANT: * REMEMBER TO TAKE ASPIRIN, 81 MG, TWICE DAILY FOR 4 WEEKS UNLESS OTHERWISE DIRECTED. THIS IS YOUR BLOOD THINNER. * HIGH RISK PATIENTS MAY BE PRESCRIBED A STRONGER BLOOD THINNER. THIS WILL BE PROVIDED AT DISCHARGE. * CALL IF INCREASED PAIN, REDNESS, DRAINAGE OR FEVER GREATER THAT 101. * WEAR BEL HOSE 20 HOURS PER DAY FOR 2 WEEKS. * DRESSING INSTRUCTIONS * JAKI Dressing- This is a large suction dressing covering your incision. This will help pull any excess drainage from the wound and allow your incision to heal properly. You may shower with this if you can keep the unit outside of the shower. If any bleeding or leakage is noted please call your doctor's office. This will remain on your incision for 7 days and then should be removed. This can be done yourself or by the home nursing staff if applicable. The entire unit is disposable once removed. Once removed, keep incision clean and dry. If redness or drainage is noted, please call your surgeon. ONCE JAKI IS REMOVED, FOLLOW THESE INSTRUCTIONS: DERMABOND Prineo- This is a mesh tape dressing that is covered with glue. It should remain in place until the incision is properly healed, usually 10-14 days. This dressing is designed to naturally slough off. You may trim the excess mesh tape as it peels off. Incision may be briefly wet in a shower. Dry immediately by blotting with a clean, dry towel. Do not bath or swim until instructed by your doctor. Do not scratch, rub, or pick at the dressing. Do not apply any topical ointments or lotions until dressing is completely removed and/or instructed by your doctor. There may be a small piece of suture material at one end of your incision. Do not pull or trim this. If it is bothersome or catching on clothing, you may cover it with a band-aid. IF INCISION IS LEAKING THROUGH DRESSING, CALL THE OFFICE . FOLLOW UP VISIT: If appointment is not already scheduled: Please call [facility] [place] to make a follow-up appointment for 2 weeks after your surgery at . Stand-Alone Forms: [facility] Medications and DC Order Prescriptions: New acetaminophen [Tylenol Extra Strength] 500 mg Tablet 1,000 mg PO Q8 14 Days Qty: 84 0RF polyethylene glycol 3350 [Miralax] 17 gram powder in packet 17 g PO DAILY PRN (Reason: constipation) Qty: 5 0RF aspirin [Ecotrin Low Strength] 81 mg tablet,delayed release (DR/EC) 81 mg PO BID 30 Days Qty: 60 0RF cefadroxil 500 mg capsule 500 mg PO BID Qty: 28 1RF oxycodone 5 mg tablet 5 mg PO Q4H MDD 6 PRN (Reason: pain) Qty: 30 0RF Continued calcium 600 mg Capsule 600 mg PO QAM atorvastatin 40 mg Tablet 40 mg PO PM ascorbic acid (vitamin C) [Vitamin C] 1,000 mg Tablet 1 g PO QAM cyanocobalamin (vitamin B-12) [Vitamin B-12] 1,000 mcg Tablet 1,000 mcg PO QAM fexofenadine 180 mg Tablet 180 mg PO QAM levothyroxine 150 mcg Tablet 150 mcg PO 6XWK lisinopril 5 mg Tablet 5 mg PO QAM metoprolol succinate 25 mg Tablet Extended Release 24 Hr 25 mg PO QAM fluticasone propion-salmeterol [Advair Diskus] 100-50 mcg/dose Blister With Device 1 inh INHALATION QAM glucosamine-chondroitin [Osteo Bi-Flex] 250-200 mg Tablet 1 tab PO QAM omeprazole 20 mg Tablet,Delayed Release (Dr/Ec) 20 mg PO QAM coQ10 (ubiquinol) 100 mg Capsule 100 mg PO QAM Discontinued Brilinta 90 mg Tablet 90 mg PO BID aspirin 81 mg Capsule 81 mg PO QAM Krames/Other Patient Handouts: Knee Osteoarthritis Admission Data Admit Date/Time: 07/23/22 13:07 Attending Provider: Romeo Dick Admit Provider: Romeo Dick Primary Care Provider: Baldo Roper Other Providers: Devon Laguna Robert R. Other Interventions: Discharge Summary Assessment (RN) Last Done: 07/24/22 10:52
== END 2022-07-24 12:08 | disposition home health service (06) ==
LOC: 3E 08:23 → ASU 08:23